=== PATIENT | male | born 1990 | race Caucasian/White ===

== ENCOUNTER 2019-02-25 20:19 | Emergency (ER) | payer SELFPAY ==
[2019-02-25 20:32] VITALS: BP 130/76; PULSE 84; TEMP 98.7; BMI 30.6
--- NOTE | 2019-02-25 20:32 | PDOC ---
Rapid Medical Evaluation Time Seen by Provider: 02/25/19 20:29 Medical Evaluation: Allergies Allergy/AdvReac Type Severity Reaction Status Date / Time No Known Allergies Allergy Verified 08/24/15 00:01 02/25/19 20:29 HPI: Worried about high blood sugar checked from friends glucometer PE: No gross deficits ORDERS: UA CBC CMP Discharge Disposition - Diagnosis Concern about disease without diagnosis - Referrals - Patient Instructions - Post Discharge Activity
[2019-02-25 22:07] LABS: BASO % 0.8 % (0-2.0); EOS % 1.6 % (0-4.5); HEMATOCRIT 48.6 % (35.4-49); HEMOGLOBIN 16.3 GM/dL (11.7-16.9); LYMPH % 27.5 % (8-40); MCH 26.9 pg (25.7-33.7); MCHC 33.5 g/dl (32.0-35.9); MEAN CELL VOLUME 80.2 fl (80-96); MEAN PLT VOLUME 8.6 fl (7.5-11.1); MONO % 5.7 % (3.8-10.2); NEUT % 64.4 % (42.8-82.8); PLATELET COUNT 297 K/MM3 (134-434); RBC 6.06 M/mm3 (4.00-5.60); RDW 13.1 % (11.9-15.9); WHITE BLOOD COUNT 11.2 K/mm3 (4.0-10.0)
[2019-02-25 22:09] LABS: URINE APPEARANCE CLEAR; URINE BILIRUBIN NEGATIVE (NEGATIVE); URINE COLOR YELLOW; URINE GLUCOSE (UA) 2+ (NEGATIVE); URINE KETONE TRACE (NEGATIVE); URINE LEUK ESTERASE NEGATIVE (NEGATIVE); URINE NITRITE NEGATIVE (NEGATIVE); URINE PROTEIN NEGATIVE (NEGATIVE); URINE UROBILINOGEN 0.2 mg/dL (0.2-1.0)
[2019-02-25 22:48] LABS: ALBUMIN 3.9 g/dl (3.4-5.0); BILIRUBIN,TOTAL 0.5 mg/dL (0.2-1); BLOOD UREA NITROGEN 12.3 mg/dL (7-18); CALCIUM 9.3 mg/dL (8.5-10.1); CREATININE 0.9 mg/dL (0.55-1.3); POTASSIUM 3.8 mmol/L (3.5-5.1); TOT PROT 7.5 g/dl (6.4-8.2)
--- NOTE | 2019-02-25 22:54 | PDOC ---
History of Present Illness - General Chief Complaint: Blood Sugar Problem Stated Complaint: BLOOD SUGAR PROBLEM Time Seen by Provider: 02/25/19 20:29 History Source: Patient, Old Records Exam Limitations: No Limitations - History of Present Illness Initial Comments: 02/25/19 23:00 HISTORY OF PRESENT ILLNESS: This is a 28-year-old male denies medical history who presents emergency department for evaluation after noted to have elevated glucose. Patient reports he was hanging out a friend of his noticed he was drinking a lot of water and urinating frequently. Sinus diabetic and off for the checked his blood sugar was noted to have a blood sugar of 700+. Patient went to sleep and when he woke up this morning with her pharmacy was noted to have a blood sugar in the 400s. Patient denies any complaints at this time but does note having a 60 pound weight loss over the past 7 months. This was purposeful as patient increased his exercise and control his diet when he noticed he was overweight. Patient denies polydipsia, polyuria and polyphagia. Patient reports he does drink a lot of water but he does not drink soda or any other liquids. No recent travel or sick contacts. PAST MEDICAL HISTORY: Denies past medical history SURGICAL HISTORY: Denies ALLERGIES: No known drug allergies REVIEW OF SYSTEMS General/Constitutional: Denies fever or chills. Denies weakness, weight change. HEENT: Denies change in vision. Denies ear pain or discharge. Denies sore throat. Cardiovascular: Denies chest pain or shortness of breath. Respiratory: Denies cough, wheezing, or hemoptysis. Gastrointestinal: Denies nausea, vomiting, diarrhea or constipation. Denies rectal bleeding. Genitourinary: Denies dysuria, frequency, or change in urination. Musculoskeletal: Denies joint or muscle swelling or pain. Denies neck or back pain. Skin and breasts: Denies rash or easy bruising. Neurologic: Denies headache, vertigo, loss of consciousness, or loss of sensation. Psychiatric: Denies depression or anxiety. Endocrine: see HPI Hematologic/Lymphatic: Denies anemia, easy bleeding, or history of blood clots. Allergic/Immunologic: Denies hives or skin allergy. Denies latex allergy. PHYSICAL EXAM General Appearance: Well-appearing, appropriately dressed. No apparent distress , no intoxication. HEENT: EOMI, PERRLA, normal ENT inspection, normal voice, TMs normal, pharynx normal. No conjunctival pallor. No photophobia, scleral icterus. Neck: Supple. Trachea midline. No tenderness, rigidity, carotid bruit, stridor , lymphadenopathy, or thyromegaly. Respiratory/Chest: Lungs CTAB. No shortness of breath, chest tenderness, respiratory distress, accessory muscle use. No crackles, rales, rhonchi, stridor , wheezing, dullness Cardiovascular: RRR. S1, S2. No JVD, murmur, bradycardia, tachycardia. Vascular Pulses: Dorsalis-Pedis (R): 2+, Dorsalis-Pedis (L): 2+ Gastrointestinal/Abdominal: Normal bowel sounds. Abdomen soft, non-distended. No tenderness or rebound tenderness. No organomegaly, pulsatile mass, guarding, hernia, hepatomegaly, splenomegaly. Lymphatic: No adenopathy, tenderness. Musculoskeletal/Extremities: Normal inspection. FROM of all extremities, normal capillary refill. Pelvis Stable. No CVA tenderness. No tenderness to extremities, pedal edema, swelling, erythema or deformity. Integumentary: Appropriate color, dry, warm. 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 Fully oriented, alert. Appropriate mood/affect. Motor strength 5/5. No appreciable EOM palsy, facial droop or sensory deficit. Past History - Past Medical History Allergies/Adverse Reactions: Allergies Allergy/AdvReac Type Severity Reaction Status Date / Time No Known Allergies Allergy Verified 08/24/15 00:01 Home Medications: Ambulatory Orders Ibuprofen [Motrin] 800 mg PO TID #20 tablet 08/24/15 Oxycodone HCl/Acetaminophen [Percocet 10-325 mg Tablet -] 1 - 2 tab PO Q6H #20 tablet 08/24/15 Penicillin V Potassium [Pen Vee K -] 500 mg PO TID #30 tablet 08/24/15 metFORMIN HCL [Metformin HCl] 500 mg PO DAILY #10 tablet 02/26/19 COPD: No - Immunization History Immunization Up to Date: Yes - Suicide/Smoking/Psychosocial Hx Smoking History: Never smoked Hx Alcohol Use: No Drug/Substance Use Hx: No *Physical Exam - Vital Signs Last Vital Signs Temp Pulse Resp BP Pulse Ox 98.7 F 84 18 130/76 99 02/25/19 20:30 02/25/19 20:30 02/25/19 20:30 02/25/19 20:30 02/25/19 20:30 ED Treatment Course - LABORATORY CBC & Chemistry Diagram: 02/25/19 21:43 02/25/19 21:43 - ADDITIONAL ORDERS Additional order review: Laboratory Results 02/25/19 02/25/19 21:43 21:43 Sodium 134 L Potassium 3.8 Chloride 98 Carbon Dioxide 27 Anion Gap 9 BUN 12.3 Creatinine 0.9 Est GFR (CKD-EPI)AfAm 134.24 Est GFR (CKD-EPI)NonAf 115.82 Calcium 9.3 Total Bilirubin 0.5 AST 32 ALT 55 Alkaline Phosphatase 146 H Total Protein 7.5 Albumin 3.9 Urine Color Yellow Urine Appearance Clear Urine pH 5.0 Ur Specific [place] 1.043 H Urine Protein Negative Urine Glucose (UA) 2+ H Urine Ketones Trace H Urine Blood Negative Urine Nitrite Negative Urine Bilirubin Negative Urine Urobilinogen 0.2 Ur Leukocyte Esterase Negative 02/25/19 21:43 RBC 6.06 H MCV 80.2 MCHC 33.5 RDW 13.1 MPV 8.6 Neutrophils % 64.4 Lymphocytes % 27.5 Monocytes % 5.7 Eosinophils % 1.6 Basophils % 0.8 Medical Decision Making - Medical Decision Making 02/25/19 23:02 A/P: 28-year-old male for evaluation of elevated glucose Physical exam is within normal limits and patient offers no complaints at this time. Labs per [facility] Reassess 02/26/19 01:15 Repeat blood sugar is 223 after receiving 2 L normal saline. I will discharge the patient home with a prescription for metformin 500 mg to be taken every night with dinner and instructions to follow-up with his primary doctor. I discussed the physical exam findings, ancillary test results and final diagnoses with the patient. I answered all of the patient's questions. The patient was satisfied with the care received and felt comfortable with the discharge plan and treatment plan. The patient will call their primary care physician within 24 hours to arrange follow-up and will return to the Emergency Department with any new, persistent or worsening symptoms. . *DC/Admit/Observation/Transfer Diagnosis at time of Disposition: Diabetes mellitus, new onset - Discharge Dispostion Disposition: HOME Condition at time of disposition: Fair Decision to Admit order: No - Prescriptions Prescriptions: metFORMIN HCL [Metformin HCl] 500 mg PO DAILY #10 tablet - Referrals Referrals: [facility] [Provider Group] - Patient Instructions Printed Discharge Instructions: Type 2 Diabetes Additional Instructions: You have given a referral for primary doctor. It is important he follow-up with his doctor within the next 10 days. You have been given a prescription for metformin 500 mg to be taken daily with dinner. Start tomorrow. You've been given a 10 day supply to ensure that you do follow up with her doctor for continued evaluation. Return to emergency department for any new or worsening symptoms. Thank you very much for choosing us to provide your emergent health care needs. - Post Discharge Activity
--- NOTE | 2019-02-25 22:58 | PDOC ---
*Physical Exam - Vital Signs Last Vital Signs Temp Pulse Resp BP Pulse Ox 98.7 F 84 18 130/76 99 02/25/19 20:30 02/25/19 20:30 02/25/19 20:30 02/25/19 20:30 02/25/19 20:30 ED Treatment Course - LABORATORY CBC & Chemistry Diagram: 02/25/19 21:43 02/25/19 21:43 - ADDITIONAL ORDERS Additional order review: Laboratory Results 02/25/19 02/25/19 21:43 21:43 Sodium 134 L Potassium 3.8 Chloride 98 Carbon Dioxide 27 Anion Gap 9 BUN 12.3 Creatinine 0.9 Est GFR (CKD-EPI)AfAm 134.24 Est GFR (CKD-EPI)NonAf 115.82 Calcium 9.3 Total Bilirubin 0.5 AST 32 ALT 55 Alkaline Phosphatase 146 H Total Protein 7.5 Albumin 3.9 Urine Color Yellow Urine Appearance Clear Urine pH 5.0 Ur Specific [place] 1.043 H Urine Protein Negative Urine Glucose (UA) 2+ H Urine Ketones Trace H Urine Blood Negative Urine Nitrite Negative Urine Bilirubin Negative Urine Urobilinogen 0.2 Ur Leukocyte Esterase Negative 02/25/19 21:43 RBC 6.06 H MCV 80.2 MCHC 33.5 RDW 13.1 MPV 8.6 Neutrophils % 64.4 Lymphocytes % 27.5 Monocytes % 5.7 Eosinophils % 1.6 Basophils % 0.8 Medical Decision Making - Medical Decision Making 02/25/19 22:58 Patient seen by the advanced practice provider under my direct supervision. Ancillary testing reviewed as necessary. I agree with plan as outlined by the advanced practice provider. *DC/Admit/Observation/Transfer Diagnosis at time of Disposition: Diabetes mellitus, new onset - Referrals - Patient Instructions - Post Discharge Activity
[2019-02-25] MEDS ORDERED: SODIUM CHLORIDE 1,000 ML IV STA (23:15)
== END 2019-02-26 01:35 | disposition home or self-care (01) ==
LOC: JER 20:19
PROC: 3E0337Z Introduction of Electrolytic and Water Balance Substance into Peripheral Vein, Percutaneous Approach (ICD-10-PCS; principal; 2019-02-25)
DX: E11.9 Type 2 diabetes mellitus without complications (principal)
CPT/HCPCS: 36415; 80053; 81003; 82962; 83036; 85025; 99283-25; J7030